=== PATIENT | male | born 1960 | race Caucasian/White ===

== ENCOUNTER 2022-11-30 15:37 | Emergency (ER) | payer MEDICAID ==
[~2022-11-30] VITALS: Ht 172.7 cm; Wt 81.6 kg
[2022-11-30 16:00] VITALS: BP_SYST 148
[2022-11-30] MEDS ORDERED: IBUP-1971 PO (16:59)
[2022-11-30] MEDS ORDERED: DIPHTH,PERTUSS(ACELL),TET VAC 0.5 ML VIAL (Tdap) I.M. ONE (17:00)
[2022-11-30] MEDS ORDERED: IBUPROFEN 800 MG TABLET PO ONE (17:00)
[2022-11-30] MEDS ORDERED: SILVER SULFADIAZINE 1%, 25 GM TOPICAL CREAM (SSD) TP ONE (17:00)
[2022-11-30 17:13] VITALS: BP_SYST 135
--- NOTE | 2022-11-30 17:15 | NUR ---
Pt medicated per MD. Alert and oriented x4, VSS, no signs of acute distress. Patient given written and verbal discharge instructions and verbalizes understanding. ER MD discussed with patient the results and treatment provided. Patient in stable condition. ID arm band removed. IV catheter removed intact and dressing applied, no active bleeding. Rx of ibuprophen given. Patient educated on pain management and to follow up with PMD. Pain Scale . Opportunity for questions provided and answered. Medication side effect fact sheet provided.
== END 2022-11-30 17:13 | disposition home or self-care (01) ==
LOC: SED 15:37
DX: T24.211A Burn of second degree of right thigh, initial encounter (principal); T31.0 Burns involving less than 10% of body surface; Z79.899 Other long term (current) drug therapy; X10.0XXA Contact with hot drinks, initial encounter; Y93.89 Activity, other specified; Y92.89 Other specified places as the place of occurrence of the external cause; Y99.8 Other external cause status
CPT/HCPCS: 90715; 99283